=== PATIENT | female | born 1955 | race African-American/Black ===

== ENCOUNTER 2021-01-07 09:47 | Emergency (ER) | payer OTHER, SELFPAY ==
[2021-01-07 10:12] VITALS: BP 139/92; PULSE 86; RESP 16; TEMP 36.9; O2SAT 100
--- NOTE | 2021-01-07 10:35 | ED.URI ---
HPI - URI/Sore Throat General Chief Complaint: Upper Respiratory Infection Stated Complaint: sore throat/cough/congestion/chest hurts Time Seen by Provider: 01/07/21 10:21 Source: patient and RN notes reviewed Mode of arrival: ambulatory Limitations: no limitations History of Present Illness HPI Narrative: Patient presents today with a 2-week history of dry cough, yellow nasal drainage, hoarseness, chest congestion, postnasal drip. States that prior to this she had a head cold with a sore throat that has resolved, but she cannot kick the rest of her symptoms. She has been taking TheraFlu, Robitussin, and Mucinex without relief. She had COVID-19 approximately 1 year ago and takes Mucinex daily per her PCPs recommendation. History of asthma. She takes her Breo every day, but has not been using her rescue inhaler. She has had both of her COVID-19 vaccines. MD elicited complaint: cough and nasal congestion Related Data Home Medications Medication Instructions Recorded Confirmed aspirin [Adult Aspirin EC Low 81 mg PO DAILY 01/07/21 01/07/21 Strength] fluticasone furoate-vilanterol 25 inh INHALATION DAILY 01/07/21 01/07/21 [Breo Ellipta] guaifenesin [Mucinex] 600 mg PO DAILY 01/07/21 01/07/21 hydrochlorothiazide 25 mg PO DAILY 01/07/21 01/07/21 Allergies Allergy/AdvReac Type Severity Reaction Status Date / Time No Known Allergies Allergy Mild Verified 12/15/10 15:54 Review of Systems Review of Systems: Narrative: CONSTITUTIONAL: Denies body aches, fever, chills, or sweats. EYES: Denies visual changes, redness, or discharge. ENT: Denies + postnasal drip, voice hoarseness, yellow nasal discharge. CARDIOVASCULAR: Denies chest pain, palpitations, or edema. RESPIRATORY: Denies dyspnea. + Chest congestion, dry cough GASTROINTESTINAL: Denies abdominal pain, nausea, vomiting, or diarrhea. GENITOURINARY: Denies dysuria or hematuria. SKIN: Denies rash, itching, or wounds. MUSCULOSKELETAL: Denies back pain, joint pain, or myalgia. NEUROLOGIC: Denies headache, numbness, tingling, or weakness. PSYCH: Denies depression or anxiety. [facility] Past Medical History Medical History (Updated 01/07/21 @ 10:43 by Zulma Lezama, [facility], ) Asthma History of COVID-19 Hypertension Comments At time of signature, I have reviewed and agree with nursing past medical, surgical, social and family history unless otherwise noted. Please see nursing chart for further information. There is no relevant family history pertinent to the presenting complaint Exam Narrative: Exam Narrative: GENERAL: Well-appearing, well-nourished, and in no acute distress. HEAD: Normocephalic, atraumatic. EYES: EOMI. No redness or drainage. Conjunctivae normal. ENT: Mucous membranes pink and moist. Nares congested with clear drainage. TMs normal bilaterally. Throat normal. Uvula midline. Voice is mildly hoarse NECK: Normal AROM. Supple. No lymphadenopathy. CHEST: No respiratory distress. Clear to auscultation. Slightly diminished in the bilateral bases. HEART: Regular rate and rhythm. No murmur appreciated. Normal peripheral pulses. EXTREMITIES: Normal range of motion. No edema. SKIN: Warm, dry, no rash. Capillary refill normal. Normal skin turgor. NEURO: No focal deficits. Alert and oriented x3. Gait steady. PSYCH: Normal affect. No signs of depression or anxiety. Course Vital Signs Vital signs: Vital Signs Temperature 98.5 F 01/07/21 10:12 Pulse Rate 86 01/07/21 10:12 Respiratory Rate 16 01/07/21 10:12 Blood Pressure 139/92 H 01/07/21 10:12 Pulse Oximetry 100 01/07/21 10:12 Temperature 98.5 F 01/07/21 10:12 Pulse Rate 86 01/07/21 10:12 Respiratory Rate 16 01/07/21 10:12 Blood Pressure 139/92 H 01/07/21 10:12 Pulse Oximetry 100 01/07/21 10:12 Reviewed. Pt has been instructed to follow up with her PCP regarding her elevated blood pressure today. MDM - URI/Sore Throat Differential Diagnosis Differential
== END 2021-01-07 10:49 | disposition home or self-care (01) ==
PROVIDERS: Emergency Provider Nurse Practitioner
DX: J40 Bronchitis, not specified as acute or chronic (principal); J04.0 Acute laryngitis; J45.909 Unspecified asthma, uncomplicated; Z86.16 Personal history of COVID-19; I10 Essential (primary) hypertension; Z79.82 Long term (current) use of aspirin
CPT/HCPCS: 99213; G0463

== ENCOUNTER → 2021-08-21 16:26 | Outpatient (CLI) | payer OTHER, SELFPAY ==
--- NOTE | ~2021-08-21 | MM_ITS ---
EXAMINATION: MM screening [facility] HISTORY: Screening TECHNIQUE: Craniocaudal and mediolateral oblique 3-D tomosynthesis images were obtained and synthetic 2-D images were generated. CAD analysis was submitted and interpreted. COMPARISON: Comparison to multiple prior studies sequentially, with oldest reviewed study dated 06/23. BREAST PARENCHYMAL COMPOSITION: There are scattered areas of fibroglandular density. FINDINGS: There is no evidence of suspicious mass, calcification, or architectural distortion to sugg est malignancy in either breast. There has been no suspicious interval change. IMPRESSION: 1. No mammographic evidence of malignancy. 2. Recommend routine screening mammography in one year. BI-RADS Category 1: Negative. Reviewed, dictated and finalized at location A. BER WALKER
== END ==
PROVIDERS: Visit Provider Advanced Practice Midwife
DX: Z12.31 Encounter for screening mammogram for malignant neoplasm of breast (principal)
CPT/HCPCS: 77063; 77067

== ENCOUNTER 2022-07-11 01:25 | Day surgery (SDC) | payer OTHER, SELFPAY ==
[2022-07-03 08:49] VITALS: BMI 35.0
--- NOTE | 2022-07-10 15:07 | P.HP_ITS ---
History of Present Illness History of Present Illness Consent: Risks, benefits, and alternatives have been discussed and questions answered. Patient agrees to proceed with procedure. Chief complaint: GERD, neoplasm screening Narrative: This is a 66-year-old female who has been troubled by great deal of heartburn. She also had loose stools recently when taking Cipro but that has resolved. She is due for colon cancer screening. Review of Systems Review of Systems: All systems reviewed & are unremarkable except as noted in HPI and below PMFSH Past Medical History Medical History Asthma Family history of Crohn's disease History of COVID-19 Hypertension Social History Social History Smoking packs per day: 1.5 Smoking cigarettes per day: 30.0 Years smoked: 4 Smoking pack-years: 6.00 Smoking status: Former smoker Tobacco type: cigarettes Alcohol intake: current Alcohol use details: 4 per month Substance use: never Substance use type: does not use Living arrangements: with family Spiritual care concerns: No Meds Home Medications and Allergies Home Medications Medication Instructions Recorded Confirmed Type albuterol sulfate 90 mcg/actuation 2 puff inhalation Q4-6H PRN 01/07/21 07/03/22 Rx aerosol inhaler (ProAir HFA) Shortness Of Breath Or Wheezing #18 grams fluticasone furoate 200 25 inh inhalation DAILY 01/07/21 07/03/22 History mcg-vilanterol 25 mcg/dose inhalation powder (Breo Ellipta) hydrochlorothiazide 25 mg tablet 25 mg PO DAILY 01/07/21 07/03/22 History ascorbic acid (vitamin C) 1,000 mg 1 g PO DAILY 05/27/22 07/03/22 History capsule phentermine 37.5 mg capsule 37.5 mg PO DAILY 05/27/22 07/03/22 History potassium citrate 99 mg capsule 99 mg PO DAILY 05/27/22 07/03/22 History calcium carbonate 600 mg calcium 600 mg PO DAILY 07/03/22 07/03/22 History (1,500 mg) tablet cholecalciferol (vitamin D3) 25 25 mcg PO DAILY 07/03/22 07/03/22 History mcg (1,000 unit) capsule ginkgo biloba 40 mg tablet 40 mg PO DAILY 07/03/22 07/03/22 History Allergies Allergy/AdvReac Type Severity Reaction Status Date / Time No Known Allergies Allergy Mild Verified 07/11/22 09:27 Exam Const: General: alert Orientation/consciousness: patient oriented x3 Resp: Auscultation: clear to auscultation bilaterally Cardio: Rhythm: regular rhythm GI: GI Palp: Yes Soft to palpation and No Tenderness to palpation present (GI) Neuro: General: patient oriented x3 Assessment and Plan Assessment and plan (1) GERD (gastroesophageal reflux disease): Code(s): K21.9 - Gastro-esophageal reflux disease without esophagitis Status: Acute Assessment and Plan: EGD with possible biopsy or dilatation or cautery. (2) Encounter for screening colonoscopy: Code(s): Z12.11 - Encounter for screening for malignant neoplasm of colon Status: Acute Assessment and Plan: Colonoscopy with possible biopsy or polypectomy or cautery or injection of hanh bstances.
[2022-07-11 09:28] VITALS: BP 127/86; PULSE 92; RESP 18; TEMP 36.1; O2SAT 99; BMI 34.7
[2022-07-11] MEDS: LACTATED RINGERS 1,000 ML 150 ML IV CONT (09:38)
--- NOTE | 2022-07-11 09:47 | P.PNAN_ITS ---
Anes - Initial Pre Proc Eval Procedure: Operation Date: 07/11/22 10:15 Proposed Procedures p Esophagogastroduodenoscopy & Screening Colonoscopy - Johnnie Vivas MD Date/Time: 07/11/22 09:47 Surgeon: Johnnie Vivas MD Pre Op Diagnosis: GERD, neoplasm screening Patient Data Age: 66 Gender: F Height: 1.65 m Weight: 94.6 kg Last Vital Signs Temp 97 F L 07/11/22 09:28 Pulse 92 07/11/22 09:28 Resp 18 07/11/22 09:28 BP 127/86 07/11/22 09:28 Pulse Ox 99 07/11/22 09:28 O2 Del Method Room Air 07/11/22 09:28 Allergies Allergy/AdvReac Type Severity Reaction Status Date / Time No Known Allergies Allergy Mild Verified 07/11/22 09:27 Home Medications Medication Instructions Recorded Confirmed Type albuterol sulfate 90 mcg/actuation 2 puff inhalation Q4-6H PRN 01/07/21 07/03/22 Rx aerosol inhaler (ProAir HFA) Shortness Of Breath Or Wheezing #18 grams fluticasone furoate 200 25 inh inhalation DAILY 01/07/21 07/03/22 History mcg-vilanterol 25 mcg/dose inhalation powder (Breo Ellipta) hydrochlorothiazide 25 mg tablet 25 mg PO DAILY 01/07/21 07/03/22 History ascorbic acid (vitamin C) 1,000 mg 1 g PO DAILY 05/27/22 07/03/22 History capsule phentermine 37.5 mg capsule 37.5 mg PO DAILY 05/27/22 07/03/22 History potassium citrate 99 mg capsule 99 mg PO DAILY 05/27/22 07/03/22 History calcium carbonate 600 mg calcium 600 mg PO DAILY 07/03/22 07/03/22 History (1,500 mg) tablet cholecalciferol (vitamin D3) 25 25 mcg PO DAILY 07/03/22 07/03/22 History mcg (1,000 unit) capsule ginkgo biloba 40 mg tablet 40 mg PO DAILY 07/03/22 07/03/22 History Patient hx anesthesia problems: none Family hx anesthesia problems: none Results Review: All pre-operative results and documents have been reviewed as part of the pre- operative evaluation. [facility] Past Medical History Medical History (Updated 05/27/22 @ 10:37 by Johnnie Vivas MD) Asthma Family history of Crohn's disease History of COVID-19 Hypertension Social History Social History Smoking packs per day: 1.5 Smoking cigarettes per day: 30.0 Years smoked: 4 Smoking pack-years: 6.00 Smoking status: Former smoker Tobacco type: cigarettes Alcohol intake: current Alcohol use details: 4 per month Substance use: never Substance use type: does not use Living arrangements: with family Spiritual care concerns: No Anes - Eval Final PreProcedure Day of Procedure 07/11/22 09:47 Patient weight: obese Heart: regular rate and rhythm Lungs: clear to auscultation Airway: Mallampati scale class II Neurological: alert and oriented Last oral intake: >/= 8 hours ASA classification: II Emergent: no Anesthetic plan: proceed Anesthesia type and monitoring: general GIVS and standard monitoring Results Review: All pre-operative results and documents have been reviewed as part of the pre- operative evaluation. Informed Consent: The patient's anesthetic plan and its attendant risks and benefits were discussed with the patient/family/POA. Questions were solicited and answers provided to the satisfaction of the patient/family/POA.
[2022-07-11 10:58] VITALS: BP 127/75; PULSE 77; RESP 18; O2SAT 98
[2022-07-11 11:07] VITALS: BP 114/71; PULSE 64; RESP 18; O2SAT 100
[2022-07-11 11:17] VITALS: BP 109/74; PULSE 65; RESP 18; O2SAT 100
== END 2022-07-11 11:34 | disposition home or self-care (01) ==
PROVIDERS: Visit Provider Internal Medicine Gastroenterology
PROC: 0DJ08ZZ Inspection of Upper Intestinal Tract, Via Natural or Artificial Opening Endoscopic (ICD-10-PCS; CPT 43235; principal; 2022-07-11 10:15)
DX: Z12.11 Encounter for screening for malignant neoplasm of colon (principal); K64.8 Other hemorrhoids; K57.30 Diverticulosis of large intestine without perforation or abscess without bleeding; K21.9 Gastro-esophageal reflux disease without esophagitis; Z79.51 Long term (current) use of inhaled steroids; J45.909 Unspecified asthma, uncomplicated; I10 Essential (primary) hypertension; Z86.16 Personal history of COVID-19; Z87.891 Personal history of nicotine dependence; E66.9 Obesity, unspecified; Z68.34 Body mass index [BMI] 34.0-34.9, adult
CPT/HCPCS: 45378; 43239; 87081; J2704; J7120

== ENCOUNTER → 2022-08-29 13:48 | Outpatient (CLI) | payer OTHER, SELFPAY ==
--- NOTE | ~2022-08-29 | MM_ITS ---
EXAMINATION: MM screening [facility] HISTORY: Screening mammogram TECHNIQUE: Craniocaudal and mediolateral oblique 3-D tomosynthesis images were obtained and synthetic 2-D images were generated. CAD analysis was submitted and interpreted. COMPARISON: 08/17/2021, 02/14/2019 bilateral screening mammogram examinations BREAST PARENCHYMAL COMPOSITION: There are scattered areas of fibroglandular density. FINDINGS: There is no evidence of suspicious mass, calcification, or architectural distortion to sugg est malignancy in either breast. There has been no suspicious interval change. IMPRESSION: 1. No mammographic evidence of malignancy. 2. Recommend routine screening mammography in one year. BI-RADS Category 1: Negative Reviewed, dictated and finalized at location A. [employer]
== END ==
DX: Z12.31 Encounter for screening mammogram for malignant neoplasm of breast (principal)
CPT/HCPCS: 77063; 77067

== ENCOUNTER 2024-04-18 10:31 | Emergency (ER) | payer OTHER, SELFPAY ==
[2024-04-18 10:44] VITALS: BP 112/78; PULSE 120; RESP 20; TEMP 36.2; O2SAT 100
--- NOTE | 2024-04-18 10:54 | ED.FEMALEGU ---
HPI - Female Genitourinary General Chief complaint: Urogenital-Female Stated complaint: Urinary Problem/Back Pain Time Seen by Provider: 04/18/24 10:54 Source: patient, RN notes reviewed and old records reviewed Mode of arrival: ambulatory Limitations: no limitations History of Present Illness HPI Narrative: 68 year old female who presents to express car with complaints of lower back pain and frequency and urgency of urination for the past week. Patient also reports some vaginal itching and burning denies any discharge.Patient reports concern for UTI due to symptoms and reports also that she has noted some odorous urine.Patient denies any fevers, no chills or sweats. Patient reports that she is getting ready to go to [facility] to see soon. Patient is on Jardiance denies being diabetic is spilling glucose in her urine at 2+ but finger stick glucose 93. Patient has history of cardiomyopathy and also CHF. MD elicited complaint: UTI Onset (ago): week(s) (1) Location of symptoms: low back Severity scale (1-10): 3 Vaginal discharge: none Urinary symptoms: Urgency, Frequency and Foul Smelling Urine Related Data Home Medications Medication Instructions Recorded Confirmed fluticasone furoate 200 25 inh inhalation DAILY 01/07/21 07/03/22 mcg-vilanterol 25 mcg/dose inhalation powder (Breo Ellipta) hydrochlorothiazide 25 mg tablet 25 mg PO DAILY 01/07/21 07/03/22 ascorbic acid (vitamin C) 1,000 mg 1 g PO DAILY 05/27/22 07/03/22 capsule phentermine 37.5 mg capsule 37.5 mg PO DAILY 05/27/22 07/03/22 potassium citrate 99 mg capsule 99 mg PO DAILY 05/27/22 07/03/22 calcium carbonate 600 mg PO DAILY 07/03/22 07/03/22 cholecalciferol (vitamin D3) 25 25 mcg PO DAILY 07/03/22 07/03/22 mcg (1,000 unit) capsule ginkgo biloba 40 mg tablet 40 mg PO DAILY 07/03/22 07/03/22 apixaban 5 mg tablet (Eliquis) mg 04/18/24 empagliflozin 10 mg tablet mg 04/18/24 (Jardiance) furosemide 40 mg tablet mg 04/18/24 spironolactone 25 mg tablet mg 04/18/24 Allergies Allergy/AdvReac Type Severity Reaction Status Date / Time No Known Allergies Allergy Mild Verified 07/11/22 09:27 Review of Systems Review of Systems: CONSTITUTIONAL: Denies fever, chills, or sweats. CARDIOVASCULAR: Denies chest pain, palpitations, or edema. RESPIRATORY: Denies cough or dyspnea. GASTROINTESTINAL: Denies abdominal pain, nausea, vomiting, or diarrhea. GENITOURINARY: Reports frequency, urgency of urination. Denies flank pain or hematuria, reports lower back pain SKIN: Denies rash or itching. MUSCULOSKELETAL: Reports lower back pain or myalgia. 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 Hypertension Surgical History Surgical History AICD (automatic cardioverter/defibrillator) present History of surgery on upper extremity orthopedic surgery History of tonsillectomy History of tubal ligation Social History Social History Smoking packs per day: 1.5 Smoking cigarettes per day: 30.0 Years smoked: 4 Smoking pack-years: 6.00 Smoking status: Former smoker Tobacco type: cigarettes Alcohol intake: current Alcohol use details: 4 per month Substance use: never Substance use type: does not use Living arrangements: with family Spiritual care concerns: No Comments At time of signature, agree with nursing past medical, surgical, social and family history. There is no relevant family history pertinent to the presenting complaint Exam Narrative: GENERAL: Well-appearing, well-
[2024-04-18 10:59] LABS: EDUAAPPEAR Clear; EDUABILI Negative; EDUABLOOD Trace; EDUACOLOR1 Yellow; EDUAGLUCOSE 2+; EDUAKETONE Negative; EDUALEUKO Negative; EDUANITRATE Negative; EDUAPH 5.5; EDUAPROTEIN Negative; EDUAUROBILI 0.2
[2024-04-18 11:39] LABS: Glucose Point of Care 93 mg/dl (65-105)
== END 2024-04-18 11:51 | disposition home or self-care (01) ==
PROVIDERS: Emergency Provider Registered Nurse
DX: R35.0 Frequency of micturition (principal); R39.15 Urgency of urination; R81 Glycosuria; Z87.891 Personal history of nicotine dependence; J45.909 Unspecified asthma, uncomplicated; I11.0 Hypertensive heart disease with heart failure; I50.9 Heart failure, unspecified; Z86.16 Personal history of COVID-19; I42.9 Cardiomyopathy, unspecified; Z95.810 Presence of automatic (implantable) cardiac defibrillator
CPT/HCPCS: 81003; 82948; 87086; 99213; G0463

== ENCOUNTER 2024-12-20 11:00 | Outpatient (CLI) | payer OTHER, SELFPAY ==
--- NOTE | ~2024-12-20 | MM_ITS ---
EXAMINATION: MM screening [facility] HISTORY: Screening TECHNIQUE: Craniocaudal and mediolateral oblique 3-D tomosynthesis images were obtained and synthetic 2-D images were generated. CAD analysis was submitted and interpreted. COMPARISON: 08/29/2022 and dating back to 02/14/2019 BREAST PARENCHYMAL COMPOSITION: There are scattered areas of fibroglandular density. FINDINGS: Punctate calcifications detected bilaterally, vascular in origin and benign in appearance. Interval placement of a pacemaker projecting over the left upper posterior breast, precluding adequat e evaluation of the underlying parenchyma. Stable parenchymal pattern without suspicious microcalcifications, architectural distortion, discrete masses or significant asymmetry. IMPRESSION: 1. No mammographic evidence of malignancy. 2. Recommend routine screening mammography in one year. BI-RADS Category 2: Benign finding(s). Reviewed, dictated and finalized at location A.
== END 2024-12-20 11:01 | disposition home or self-care (01) ==
PROVIDERS: Visit Provider Obstetrics & Gynecology
DX: Z12.31 Encounter for screening mammogram for malignant neoplasm of breast (principal)
CPT/HCPCS: 77063; 77067